=== PATIENT | male | born 1990 ===

== ENCOUNTER 2017-09-08 15:26 | Emergency (ER) | payer SELFPAY ==
[2017-09-08 15:56] VITALS: BP 110/74; PULSE 84; RESP 18; TEMP 98.6; O2SAT 99
--- NOTE | 2017-09-08 16:17 | C.PDOC ---
History Of Present Illness Patient complains of having discomfort in chest when he takes a deep breath for 3 months. He states occasionally feels like " I can't catch my breath", but denies any chest pain or shortness of breath. Patient states "I want test for cancer". Patient has no medical problems and was former smoker, quit 10 months ago. Time Seen by Provider: 09/08/17 16:06 Chief Complaint (Nursing): Medical Clearance History Per: Patient History/Exam Limitations: no limitations Onset/Duration Of Symptoms: Other (3 months) Current Symptoms Are (Timing): Still Present Past Medical History Reviewed: Historical Data, Nursing Documentation, Vital Signs Vital Signs: Last Vital Signs Temp 98.6 F 09/08/17 15:52 Pulse 84 09/08/17 15:52 Resp 18 09/08/17 15:52 BP 110/74 09/08/17 15:52 Pulse Ox 99 09/08/17 16:37 - Medical History PMH: No Chronic Diseases Surgical History: No Surg Hx Family History: States: Unknown Family Hx - Social History Hx Alcohol Use: Yes Hx Substance Use: No (PREVIOUS MARIJUANA USE) - Immunization History Hx Tetanus Toxoid Vaccination: No Hx Influenza Vaccination: No Hx Pneumococcal Vaccination: No Review Of Systems Constitutional: Negative for: Fever, Weakness, Malaise Eyes: Negative for: Vision Change Cardiovascular: Negative for: Chest Pain, Palpitations Respiratory: Positive for: Pleuritic Pain. Negative for: Cough, Wheezing Gastrointestinal: Negative for: Vomiting, Abdominal Pain, Diarrhea Skin: Negative for: Rash Neurological: Negative for: Headache, Dizziness Physical Exam - Physical Exam Appears: Non-toxic, No Acute Distress, Other (appears anxious) Skin: Normal Color, Warm, Dry Head: Atraumatic, Normacephalic Eye(s): bilateral: Normal Inspection, EOMI Nose: Normal, No Flaring Oral Mucosa: Moist Neck: Normal ROM Chest: Symmetrical, No Deformity, No Tenderness Cardiovascular: Rhythm Regular, No Murmur Respiratory: Normal Breath Sounds (clear bilaterally with good air entry. ), No Accessory Muscle Use, No Rhonchi, No Wheezing, No Plerual Rub Extremity: Bilateral: Atraumatic, Normal Color And Temperature, Normal ROM Neurological/Psych: Oriented x3, Normal Speech Gait: Steady ED Course And Treatment O2 Sat by Pulse Oximetry: 99 (room air) Pulse Ox Interpretation: Normal Medical Decision Making Medical Decision Making: Patient with complaints of having trouble breathing for 3 months. Patient states he keeps thinking and is concerned about cancer, he quit smoking. Patient appears anxious. Lung sounds clear bilaterally with good air entry. I explain to patient the ER is not facility to have test for cancer. We can begin evaluation with CXR. CXR shows No focal consolidation, significant pleural effusion, or definite pneumothorax identified. Patient re-evaluated and is seated comfortably in no distress. He is speaking clearly and O2 saturation is adequate. I recommend he follow up with PCP or clinic. Disposition Counseled Patient/Family Regarding: Diagnosis, Need For Followup, Rx Given - Disposition Referrals: [facility] [Outside] [facility] [Outside] Disposition: HOME/ ROUTINE Disposition Time: 16:35 Condition: GOOD Additional Instructions: Por favor haz un seguimiento con la clnica Use el inhalador segn sea necesario para cualquier dificultad para respirar Prescriptions: Albuterol HFA [Ventolin HFA 90 mcg/actuation (8 g)] 1 puff IH Q4 #1 puff Instructions: Dyspnea (GEN), Anxiety (ED) Forms: [employer] (Italian) - POA Present On Arrival: None - Clinical Impression Clinical Impression: Anxiety about health, Dyspnea Wells Criteria for PE - Wells Criteria for Pulmonary Embolism Clinical Signs and Symptoms of DVT: No P.E is #1 Diagnosis, or Equally Likely: No Heart Rate >100: No Immobilization at least 3 days;Surgery previous 4 weeks: No Previous, objectively diagnosed PE or DVT: No Hemoptysis: No Malignancy w/treatment within 6 months, or palliative: No Total Score: 0
--- NOTE | 2017-09-08 16:32 | RAD ---
HISTORY: sob COMPARISON: Chest x-ray portion of obstructive series performed 07/29/16 TECHNIQUE: Chest PA and lateral FINDINGS: LUNGS: No focal consolidation. Please note that chest x-ray has limited sensitivity for the detection of pulmonary masses. PLEURA: No significant pleural effusion identified. No definite pneumothorax . CARDIOVASCULAR: The cardiomediastinal silhouette appears within normal limits of size. OSSEOUS STRUCTURES: No acute osseous abnormality identified. VISUALIZED UPPER ABDOMEN: Unremarkable. OTHER FINDINGS: None. IMPRESSION: No focal consolidation, significant pleural effusion, or definite pneumothorax identified.
== END 2017-09-08 16:40 | disposition home or self-care (01) ==
LOC: C.ER 15:26
DX: F41.9 Anxiety disorder, unspecified (principal); R06.00 Dyspnea, unspecified